=== PATIENT | male | born 1965 | race Caucasian/White ===

== ENCOUNTER 2021-09-03 18:30 | Emergency (ER) | payer BC, SELFPAY | END 2021-09-03 19:44 | disposition short-term general hospital (02) | LOC: MADERS 18:30 | DX: S00.33XA Contusion of nose, initial encounter (principal); S00.81XA Abrasion of other part of head, initial encounter; I10 Essential (primary) hypertension; E78.5 Hyperlipidemia, unspecified; E78.00 Pure hypercholesterolemia, unspecified; I48.91 Unspecified atrial fibrillation; W10.9XXA Fall (on) (from) unspecified stairs and steps, initial encounter; Y93.01 Activity, walking, marching and hiking; Z79.01 Long term (current) use of anticoagulants; Z79.899 Other long term (current) drug therapy | CPT/HCPCS: 99284 ==